=== PATIENT | male | born 1980 | race Hispanic/Latino ===

== ENCOUNTER 2018-05-31 18:14 | Emergency (ER) | payer BC ==
[~2018-05-31 18:14] MED LIST: Iopamidol 370 76% 100 ML VIAL ONE
[2018-05-31 19:15] LABS: #Basophils 0.1 thou/uL (0.0-0.2); #Lymphocytes 0.2 thou/uL (1.20-3.40); #Monocytes 0.7 thou/uL (0.11-0.59); #Neutrophils 6.4 thou/uL (1.40-6.50); %Basophils 1.7 % (0.0-1.0); %Eosinophils 0.1 % (0.0-10.0); %Lymphocytes 3.2 % (21.0-51.0); %Neutrophils 85.9 % (42.0-75.0); Hemoglobin 17.2 g/dL (14.0-18.0); Mean Corpuscular HGB CONC 34.7 g/dL (32.0-36.0); Mean Corpuscular Hemoglobin 32.9 pg (27.0-31.0); Mean Corpuscular Volume 94.9 fL (78.0-98.0); Mean Platelet Volume 9.2 fL (7.4-10.4); Platelet Count 136 thou/uL (130-400); RBC Distribution Width 11.3 % (11.5-14.5); Red Blood Cell (RBC) Count 5.22 mill/uL (4.70-6.10); White Blood Cell (WBC) Count 7.5 thou/uL (4.8-10.8)
[2018-05-31 19:30] LABS: ALT (SGPT) 54 U/L (8-55); AST (SGOT) 36 U/L (5-34); Albumin 4.6 g/dL (3.5-5.0); Alkaline Phosphatase 78 U/L (40-150); Anion Gap 17 mmol/L (10-20); BUN (Urea Nitrogen) 25 mg/dL (8.9-20.6); Bilirubin, Total 1.3 mg/dL (0.2-1.2); Calc. Creatinine Clearance 0 mL/min (70-130); Calcium 9.7 mg/dL (7.8-10.44); Carbon Dioxide 22 mmol/L (22-29); Chloride 102 mmol/L (98-107); Estimated GFR-MDRD 89; Globulin 3.4 g/dL (2.4-3.5); Glucose 102 mg/dL (70-105); Potassium 3.9 mmol/L (3.5-5.1); Sodium 137 mmol/L (136-145)
[2018-05-31] MEDS ORDERED: Morphine 4 MG/ML VIAL ONE (20:38)
[2018-05-31] MEDS ORDERED: Ondansetron PF 4 MG/2 ML Vial ONE (20:38)
--- NOTE | 2018-05-31 20:41 | CT ---
FCT abdomen with contrast CT pelvis with contrast: HISTORY: 38-year-old male with right lower quadrant abdominal pain TECHNIQUE: IV injection of iodinated contrast media: Administered Oral contrast media:Not administered FINDINGS: Liver: No focal solid mass. Spleen: No splenomegaly.. Pancreas: No mass or surrounding fat stranding.. Adrenals: No mass.. Kidneys: No hydronephrosis or enhancement abnormalities.. Ureters: No dilation. Bladder: No pathology identified. Abdominal aorta: No aneurysm. Small bowel: No dilation, but fluid-filled with mildly increased enhancement of small bowel ly thr oughout entire abdomen.. Colon: No adjacent fat stranding. Appendix: No dilation or adjacent fat stranding.. Mildly enhancing ly probably represent the same process as small bowel process. Free air: None. Free fluid: None. Mesentery: Large number of mildly enlarged mesenteric lymph nodes. Lumbosacral spine: Bilateral L5 pars defects causing grade 1 anterolisthesis of L5 on S1. High-grade disc space narrowing at L5-S1. IMPRESSION: 1. No major pathology identified.. 2. Probable gastroenteritis and mild mesenteric lymphadenitis 3. Bilateral L5 spondylolysis causing grade 1 spondylolisthesis at L5-S1.
[2018-05-31 22:16] LABS: Bilirubin Negative (Negative); Blood, Urine Negative (Negative); Clarity CLEAR (Clear); Glucose, Urine (Dipstick) Negative (Negative); Leukocyte Negative (Negative); Nitrite Negative (Negative); Protein, Urine (Dipstick) Negative (Neg-Trace); Urobilinogen 0.2 mg/dL (0.2-1.0); pH, Urine 5.5 (5.0-9.0)
[2018-05-31 22:19] LABS: Specific Gravity, Urine Greater than 1.060 (1.002-1.036)
== END 2018-05-31 21:56 | disposition home or self-care (01) ==
LOC: ERS 18:14
DX: R10.9 Unspecified abdominal pain (principal)
CPT/HCPCS: 36415; 74177; 80053; 81003; 83690; 85025; 96374; 96375; J2270; J2405; Q9967